=== PATIENT | male | born 1960 | race Caucasian/White ===

== ENCOUNTER 2020-02-06 09:49 | Emergency (ER) | payer OTHER, SELFPAY ==
--- NOTE | 2020-02-06 10:01 | ED.GENADULT ---
HPI - General Adult General Chief complaint: Extremity Injury, Lower Stated complaint: left knee pain Time Seen by Provider: 02/06/20 10:16 Source: patient Mode of arrival: ambulatory Limitations: no limitations History of Present Illness HPI narrative: 59-year-old male patient presents to the [facility] with complaints of left knee pain x3 weeks. Denies any specific injury to the knee that he is aware of. Patient states he does have history of arthritis. Patient states he has been taking some ibuprofen here and there but nothing consistent. Patient states he did take about 2 or 3 ibuprofen yesterday morning when the pain was really bad in which he states that it did help because the pain is about a 4 out of 10 when he woke up this morning and now rating it 2 out of 10. Patient denies taking anything for the pain this morning. Patient states the pain is worse when bending and extending the left knee as well as walking on it. Related Data Home Medications Medication Instructions Recorded Confirmed atorvastatin 10 mg PO DAILY 02/06/20 02/06/20 diclofenac sodium 50 mg PO BID 02/06/20 02/06/20 metoprolol succinate 50 mg PO DAILY 02/06/20 02/06/20 Allergies Allergy/AdvReac Type Severity Reaction Status Date / Time No Known Allergies Allergy Unverified 02/06/20 10:13 Review of Systems Review of Systems: Narrative: CONSTITUTIONAL: Denies fever, chills, or sweats. EYES: Denies visual changes, redness, or discharge. ENT: Denies rhinorrhea, congestion, sore throat, or otalgia. CARDIOVASCULAR: Denies chest pain, palpitations, or edema. RESPIRATORY: Denies cough or dyspnea. GASTROINTESTINAL: Denies abdominal pain, nausea, vomiting, or diarrhea. GENITOURINARY: Denies dysuria or hematuria. SKIN: Denies rash or itching. MUSCULOSKELETAL: Denies back pain, joint pain, or myalgia. Positive left knee pain x3 weeks NEUROLOGIC: Denies headache, numbness, or weakness. PSYCHIATRIC: Denies anxiety or depression. [facility] Past Medical History Medical History (Updated 02/06/20 @ 10:29 by JAME Tavarez) Arthritis Fractures Left arm, nose, finger, right foot GERD (gastroesophageal reflux disease) Hypercholesteremia Hypertension Surgical History Surgical History (Updated 02/06/20 @ 10:18 by JAME Tavarez) History of orthopedic surgery Left arm and right foot Family History Family History Other Carcinoma of colon Cerebrovascular accident Family history of coronary artery disease Family history of dementia Hypertension Social History Social History Smoking status: Heavy tobacco smoker Second hand tobacco smoke exposure: No Alcohol intake: never Gender identity (if verbalized by the patient): Male Comments At the time of my signature I agree with nursing past medical history, surgical, social, and family history. There is no relevant family history pertinent to the presenting complaint. Exam Narrative: Exam Narrative: GENERAL: Well-appearing, well-nourished, and in no acute distress. HEAD: Normocephalic, atraumatic. EYES: PERRLA and EOMI. ENT: Nares clear, no rhinorrhea or epistaxis. Mucous membranes moist. NECK: Supple. No lymphadenopathy CHEST: Clear to auscultation. No respiratory distress. HEART: Regular rate and rhythm. No murmur heard. Normal peripheral pulses. ABDOMEN: Soft, nontender, nondistended, normal active bowel sounds. EXTREMITIES: Patient is able to bear weight and ambulate but complains of increased pain to left knee. No surface trauma, STS, or obvious effusion. No overlying erythema or warmth. The L knee is without obvious asymmetry or deformity when compared to the R knee. Patient is able to do deep knee bend with symmetry, fully extend knee, internal and external rotation. No tendernss to palpation of the patella, very slight effusion noted, no ballottement. No tenderness
[2020-02-06 10:08] VITALS: BP 153/95; PULSE 71; RESP 16; TEMP 36.6; O2SAT 98
== END 2020-02-06 10:37 | disposition home or self-care (01) ==
PROVIDERS: Emergency Provider Nurse Practitioner Family; PCP Family Medicine
DX: M17.12 Unilateral primary osteoarthritis, left knee (principal); F17.200 Nicotine dependence, unspecified, uncomplicated; K21.9 Gastro-esophageal reflux disease without esophagitis; E78.00 Pure hypercholesterolemia, unspecified; I10 Essential (primary) hypertension
CPT/HCPCS: 99213; G0463

== ENCOUNTER 2020-02-14 11:21 | Outpatient (CLI) | payer OTHER, SELFPAY ==
--- NOTE | ~2020-02-14 | XR_ITS ---
XR knee LT 3V 02/14/2020 12:04 INDICATION: Left knee pain PROCEDURE: 3 views left knee COMPARISON: No prior studies for comparison. FINDINGS: Fracture, dislocation or subluxation is not identified. Mild patellofemoral compartment ost eoarthritis. The soft tissues appear within normal limits. No foreign bodies are identified. IMPRESSION: 1: NO ACUTE BONE OR JOINT ABNORMALITY IDENTIFIED. Reviewed, dictated and finalized at location A.
== END 2020-02-14 11:22 ==
PROVIDERS: PCP Family Medicine; Visit Provider Physician Assistant
DX: M25.569 Pain in unspecified knee (principal)
CPT/HCPCS: 73562

== ENCOUNTER 2020-12-20 16:17 | Emergency (ER) | payer OTHER, SELFPAY ==
--- NOTE | ~2020-12-20 | XR_ITS ---
EXAMINATION: XR chest 2V EXAM DATE: 12/20/2020 16:51 INDICATION: Fatigue, weakness, left shoulder pain 4 days. Hypertension. TECHNIQUE: Frontal and lateral projections of the chest obtained and reviewed. Comparison is made to prior examination from portable x-ray 2006. FINDINGS: There is approximately 4 x 8 mm left upper lung zone opacity, could be granuloma but consid er follow-up nonemergent chest CT without contrast. The lungs are otherwise clear. There are no pleu ral effusions. The cardiomediastinal silhouette is within normal limits. There is no pneumothorax s uspected. The bones and soft tissues are unremarkable. IMPRESSION: Small indeterminate left upper lung zone nodular density; consider follow-up nonemergent chest CT without contrast. No acute findings. Reviewed, dictated and finalized at location B.
--- NOTE | 2020-12-20 16:29 | ECG_ITS ---
Measurements Intervals [place] Rate: 83 P: 21 [place]: 122 QRS: 40 QRSD: 93 T: 52 QT: 367 QTc: 433 Interpretive Statements SINUS RHYTHM DELAYED PRECORDIAL R/S TRANSITION BORDERLINE ECG Electronically Signed On 12-20-2020 17:03:43 CDT by Guero Whitlock D.O.
[2020-12-20 16:30] VITALS: BP 167/91; PULSE 95; RESP 18; TEMP 37.1; O2SAT 99
[2020-12-20 16:46] LABS: Basophils Absolute Auto 0.1 K/mm3 (0.0-0.1); Basophils Percent Auto 0.5 % (0.2-1.2); Eosinophils Absolute Auto 0.3 K/mm3 (0-0.3); Eosinophils Percent Auto 2.7 % (0-4.4); Hematocrit 50.5 % (42.0-52.0); Hemoglobin 16.6 g/dL (14.0-18.0); Immature Granulocyte Absolute 0.02 K/mm3 (0.00-0.031); Immature Granulocyte Percent A 0.2 % (0-0.5); Lymphocytes Absolute Auto 3.03 K/mm3 (0.9-3.2); Lymphocytes Percent Auto 33.2 % (18.3-44.2); Mean Corpuscular HGB Conc 32.9 g/dl (32-36); Mean Corpuscular Hemoglobin 28.6 pg (26-34); Mean Corpuscular Volume 87.1 fl (80-100); Mean Platelet Volume 9.6 fl (7.4-10.4); Monocytes Absolute Auto 0.7 K/mm3 (0.1-0.6); Monocytes Percent Auto 7.3 % (2.6-8.5); Neutrophils Absolute Auto 5.1 K/mm3 (1.3-6.7); Neutrophils Percent Auto 56.1 % (45.5-73.1); Platelet Count Result 252 k/mm3 (150-375); Red Cell Distribution Width 13.5 % (11.5-14.5); White Blood Count 9.1 K/mm3 (4.5-10.0)
[2020-12-20 16:55] LABS: Alanine Aminotransferase 30 U/L (4-50); Albumin Level 4.6 g/dL (3.5-5.1); Alkaline Phosphatase 96 U/L (38-126); Anion Gap 10 mmol/L (8-16); Aspartate Amino Transferase 33 U/L (17-59); Bilirubin,Total 0.5 mg/dL (0.2-1.3); Blood Urea Nitrogen 12 mg/dL (9-20); Calcium 9.9 mg/dL (8.4-10.2); Carbon Dioxide 21 mmol/L (22-30); Chloride 111 mmol/L (98-107); Estimated CRCL calculation 96 ml/min; Estimated Glomerular Filt Rate > 60; Glucose 95 mg/dL (65-110); Potassium 4.2 mmol/L (3.4-5.0); Sodium 142 mmol/L (137-145)
[2020-12-20 18:12] LABS: Add Urine Microscopic? NO; Appearance Urine Clear (Clear); Bilirubin Urine Negative (Negative); Blood Urine Negative (Negative); Color Urine Yellow (Yellow); Glucose Urine UA Negative (Negative); Ketones Urine Negative (Negative); Leukocyte Esterase Ur Negative LEU/UL (Negative); Nitrate Urine Negative (Negative); Protein Urine Negative (Negative); Specific Grav Ur 1.029 (1.001-1.035); Urobilinogen Urine Negative mg/dL (<2.0)
--- NOTE | 2020-12-20 21:39 | PC.NURSE ---
When vital signs were attempted to be collected the patient refused stating they can just give me my discharge papers since they don't know what's wrong with me
--- NOTE | 2020-12-20 21:46 | ED.WEAKNESS ---
HPI - Weakness General Chief complaint: Weakness Stated complaint: fatigue, seen at [facility] yesterday for c/o Time Seen by Provider: 12/20/20 21:02 History of Present Illness HPI Narrative: 60 yo male w/ h/o htn presents to the ED for fatigue. He reports that for the past 4 days he has been extremely tired. He can only tolerate brief activity before needing to rest. He denies feeling ill otherwise. No fever, chills, nausea, vomiting, CP, SOB. He was seen at urgent care yesterday and told to come to the ED then. He reports that the wait was too long then, so he came back today. He was again in the waiting room for a few hours and is no longer interested in any further evaluation. Related Data Allergies Allergy/AdvReac Type Severity Reaction Status Date / Time No Known Allergies Allergy Verified 02/14/20 10:43 Review of Systems Review of Systems: All systems reviewed & are unremarkable except as noted in HPI and below Constitutional: Constitutional: Denies chills, Reports fatigue and Denies fever(s) Eyes: Eyes: Reports no additional eye complaints ENT: Denies sore throat Cardiovascular: Cardiovascular: Denies chest pain Respiratory: Respiratory: Denies dyspnea Gastrointestinal: Gastrointestinal: Denies abdominal pain, Denies diarrhea, Denies nausea and Denies vomiting Genitourinary: Genitourinary: Reports no additional male genitourinary complaints Musculoskeletal: Musculoskeletal: Denies myalgias Neurologic: Denies confusion, Denies syncope, Denies headache(s) and Denies focal weakness Endocrine: Endocrine: Denies polydipsia PMFSH Past Medical History Medical History Arthritis Fractures Left arm, nose, finger, right foot GERD (gastroesophageal reflux disease) Hypercholesteremia Hypertension Surgical History Surgical History History of orthopedic surgery Left arm and right foot Family History Family History Other Carcinoma of colon Cerebrovascular accident Family history of coronary artery disease Family history of dementia Hypertension Social History Social History Smoking status: Heavy tobacco smoker Second hand tobacco smoke exposure: No Alcohol intake: never Gender identity (if verbalized by the patient): Male Exam Const: General: healthy appearing, no acute distress and alert Orientation/consciousness: patient oriented x3 HENMT: Head: normal to inspection Face and sinus: normal facial exam Eyes: Pupils: Equal, round and reactive pupils present Neck: Neck: normal visual inspection Resp: Effort & Inspection: normal respiratory effort Auscultation: clear to auscultation bilaterally, no rales, no rhonchi and no wheezes Cardio: Jugular venous distension: no JVD Rate: regular rate Rhythm: regular rhythm Heart sounds: no murmurs GI: Inspection: non-distended GI Palp: Yes Soft to palpation and No Tenderness to palpation present (GI) Skin: General skin exam: normal color Neuro: General: patient oriented x3, moves all extremities, no focal motor deficits and CN's II-XI intact bilaterally Speech: normal speech Gait exam (Neuro): Normal gait present Extrem: General: no edema Psych: Appearance: grossly normal and well kempt Mental Status: mental status grossly normal Affect: normal affect Course Vital Signs Vital signs: Vital Signs Temperature 37.1 C 12/20/20 16:30 Pulse Rate 95 12/20/20 16:30 Respiratory Rate 18 12/20/20 16:30 Blood Pressure 167/91 H 12/20/20 16:30 Pulse Oximetry 99 12/20/20 16:30 Temperature 37.1 C 12/20/20 16:30 Pulse Rate 83 12/20/20 22:31 Respiratory Rate 16 12/20/20 22:31 Blood Pressure 157/111 H 12/20/20 22:31 Pulse Oximetry 99 12/20/20 22:31 MDM - Weakness MDM Narrati
[2020-12-20 22:31] VITALS: BP 157/111; PULSE 83; RESP 16; O2SAT 99
== END 2020-12-20 22:31 | disposition home or self-care (01) ==
PROVIDERS: Emergency Medicine; Emergency Provider Emergency Medicine; PCP Family Medicine
DX: R53.83 Other fatigue (principal); R53.81 Other malaise; M19.90 Unspecified osteoarthritis, unspecified site; K21.9 Gastro-esophageal reflux disease without esophagitis; E78.00 Pure hypercholesterolemia, unspecified; I10 Essential (primary) hypertension; F17.200 Nicotine dependence, unspecified, uncomplicated; R91.8 Other nonspecific abnormal finding of lung field
CPT/HCPCS: 36415; 71046; 80053; 81003; 85025; 93005; 99283

== ENCOUNTER 2021-11-08 13:10 | Emergency (ER) | payer OTHER, SELFPAY ==
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
[2021-11-08 13:30] VITALS: BP 161/104; PULSE 75; RESP 16; TEMP 36.8; O2SAT 99
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
== END 2021-11-08 15:01 | disposition home or self-care (01) ==
PROVIDERS: Emergency Provider Emergency Medicine; PCP Family Medicine
DX: S29.9XXA Unspecified injury of thorax, initial encounter (principal); S16.1XXA Strain of muscle, fascia and tendon at neck level, initial encounter; E78.00 Pure hypercholesterolemia, unspecified; I10 Essential (primary) hypertension; K21.9 Gastro-esophageal reflux disease without esophagitis; M19.90 Unspecified osteoarthritis, unspecified site; F17.200 Nicotine dependence, unspecified, uncomplicated; V63.5XXA Driver of heavy transport vehicle injured in collision with car, pick-up truck or van in traffic accident, initial encounter
CPT/HCPCS: 70450; 71101; 72125; 99284

== ENCOUNTER 2021-11-18 08:01 | Outpatient (CLI) | payer OTHER, SELFPAY ==
--- NOTE | ~2021-11-18 | US_ITS ---
EXAMINATION: US carotid duplex BI DATE: 11/18/2021 08:45 INDICATION: Cerebral infarction. TECHNIQUE: Grayscale, color Doppler, and pulsed Doppler images of the cervical carotid arteries were obtained. The degree of vessel stenosis is placed in one of the following categories: normal, <50%, 5 0-69%, >=70% but less than near-occlusion, near-occlusion, or total occlusion. Note that percent sten osis relative to normal distal artery lumen diameter is indirectly measured from velocity measurement s as described by Harris, et al. Radiology 2003; 229:340-346. Notes: Normal: Peak systolic velocity <125 centimeters/sec and no plaque <50%. Peak systolic velocity <125 ( EDV <40; ICA/CCA PSV ratio <2.0; used these factors only a tandem lesions or low cardiac output or co ntralateral disease) 50-69 %: PSV 125-230 (EDV 40-100; ratio 2-4) >= 70% but less than near occlusion: PSV greater than 230 (EDV > 100; ratio> 4.0) Near Occlusion: PSV that is variable; markedly narrowed lumen Occlusion: Absent flow on color/spectral Doppler and no lumen on colin scale. COMPARISON: None. FINDINGS: RIGHT: The right common carotid artery (CCA) peak systolic velocity (PSV) is 78 cm/s. The right internal car otid artery (ICA) PSV is 52 cm/s. The right ICA end-diastolic velocity (EDV) is 16 cm/s. The right IC A/CCA PSV ratio is 0.7. The external carotid artery (ECA) PSV is 113 cm/s. There is antegrade flow in the right vertebral artery. LEFT: The left CCA PSV is 108 cm/s. The left ICA PSV is 83 cm/s. The left ICA EDV is 31 cm/s. The left ICA/ CCA PSV ratio is 0.8. The ECA PSV is 138 cm/s. There is antegrade flow in the left vertebral artery. IMPRESSION: 1. Less than 50% stenosis in the right internal carotid artery by sonographic criteria. 2. Less than 50% stenosis in the left internal carotid artery by sonographic criteria. Reviewed, dictated and finalized at location A. IMPRESSION: 1. Less than 50% stenosis in the right internal carotid artery by sonographic macrina jarquin. 2. Less than 50% stenosis in the left internal carotid artery by sonographic fabiana thibodeaux.
== END 2021-11-18 08:02 | disposition home or self-care (01) ==
PROVIDERS: PCP Family Medicine; Visit Provider Family Medicine
DX: I63.9 Cerebral infarction, unspecified (principal); I65.23 Occlusion and stenosis of bilateral carotid arteries
CPT/HCPCS: 93880

== ENCOUNTER 2023-04-30 10:17 | Emergency (ER) | payer BC, SELFPAY ==
[2023-04-30 10:30] VITALS: BP 177/104; PULSE 98; RESP 22; TEMP 36.7; O2SAT 99
[2023-04-30] MEDS: ASPIRIN 81 MG CHEWABLE TABLET 324 MG PO (10:39)
--- NOTE | 2023-04-30 10:40 | ECG_ITS ---
Measurements Intervals [place] Rate: 85 P: 10 [place]: 133 QRS: 9 QRSD: 93 T: 24 QT: 324 QTc: 385 Interpretive Statements SINUS RHYTHM ANTEROLATERAL mYOCARDIAL INFARCTION [40+ ms Q WAVE IN V1/V2], PROBABLY RECENT OR ACUTE COMPARED TO ECG 12/20/2020 16:36:45 MYOCARDIAL INFARCT FINDING NOW PRESENT Electronically Signed On 04-30-2023 19:09:47 DIRECTOR OF CASINO by Merari Solano M.D.
[2023-04-30 10:42] VITALS: BP 173/117; PULSE 86; RESP 20; O2SAT 96
--- NOTE | 2023-04-30 10:49 | ED.CHESTPAIN ---
HPI - Chest Pain General Chief Complaint: Chest Pain Stated Complaint: chest pain,feeling weak,sluggish Time Seen by Provider: 04/30/23 10:30 Source: patient, RN notes reviewed and old records reviewed Mode of arrival: ambulatory Limitations: no limitations History of Present Illness HPI narrative: Year old male with a history of high cholesterol hypertension presents to the [facility] with 2 days of left-sided chest pain radiating to his left shoulder. States that he was In pain and extremely weak he could not get out bed. reports that his blood pressure medications last night, blood pressure is elevated in clinic MD complaint: chest pain and chest discomfort Onset (ago): day(s) (2) Treatment prior to arrival: none Risk Factors Coronary artery disease risk factors: hyperlipidemia and hypertension Related Data Allergies Allergy/AdvReac Type Severity Reaction Status Date / Time No Known Allergies Allergy Verified 04/30/23 10:34 Review of Systems Review of Systems: All systems reviewed & are unremarkable except as noted in HPI and below Constitutional: Constitutional: Reports no additional constitutional complaints Eyes: Eyes: Reports no additional eye complaints ENT: Reports system reviewed and no additional complaints, except as documented Cardiovascular: Cardiovascular: Reports as per HPI, Reports chest pain, Reports chest pain at rest, Reports chest pain with activity, Denies diaphoresis, Denies edema and Reports dyspnea Respiratory: Respiratory: Reports no additional respiratory complaints, Denies chest congestion, Denies cough and Denies dyspnea Gastrointestinal: Gastrointestinal: Reports no additional gastrointestinal complaints, Denies abdominal pain, Denies nausea and Denies vomiting Musculoskeletal: Musculoskeletal: Reports no additional musculoskeletal complaints Integumentary/Breasts: Skin/Breast: Reports system reviewed and no additional complaints, except as docu Neurologic: Reports system reviewed and no additional complaints, except as documented Psychiatric: Psychiatric: Reports no additional psychiatric complaints Allergic/Immunologic: Allergic/Immunologic: Reports no additional allergic/immunologic complaints PMFSH Past Medical History Medical History Arthritis Fractures Left arm, nose, finger, right foot GERD (gastroesophageal reflux disease) Hypercholesteremia Hypertension Surgical History Surgical History History of orthopedic surgery Left arm and right foot Family History Family History Other Carcinoma of colon Cerebrovascular accident Family history of coronary artery disease Family history of dementia Hypertension Social History Social History Smoking packs per day: 1 Smoking cigarettes per day: 20.0 Years smoked: 46 Smoking pack-years: 46.00 Smoking status: Heavy tobacco smoker Second hand tobacco smoke exposure: No Alcohol intake: never Substance use: never Substance use type: does not use Gender identity (if verbalized by the patient): Male Comments At the time of my signature, I reviewed and agree with the nursing past medical, surgical, social, and family history. There is no relevant family history pertinent to the patient complaint. Exam Const: General: cooperative, healthy appearing, comfortable, no acute distress, well developed, alert and well nourished Nutritional Appearance: well nourished Orientation/consciousness: patient oriented x3 Limitations: no limitations HENMT: Head: normal to inspection Ears: hearing grossly normal bilaterally and external ears normal Face/Nose/Sinus: Normal external nose present, Normal nares present, Normal nasal mucous membranes and turbinates present, normal facial exam and face symme
== END 2023-04-30 10:49 | disposition short-term general hospital (02) ==
PROVIDERS: Emergency Provider Nurse Practitioner; PCP Family Medicine
DX: I10 Essential (primary) hypertension (principal); R07.9 Chest pain, unspecified; R94.31 Abnormal electrocardiogram [ECG] [EKG]; F17.210 Nicotine dependence, cigarettes, uncomplicated; M19.90 Unspecified osteoarthritis, unspecified site; E78.00 Pure hypercholesterolemia, unspecified; K21.9 Gastro-esophageal reflux disease without esophagitis
CPT/HCPCS: 93005; 99215; A9270; G0463

== ENCOUNTER 2023-04-30 11:15 | Inpatient (IN) | payer BC, SELFPAY ==
[2023-04-30] VITALS (14 sets, daily range): BP systolic 136–165; BP diastolic 77–102; PULSE 73–82; RESP 12–22; TEMP 36.7–36.8; O2SAT 95–100
--- NOTE | ~2023-04-30 | XR_ITS ---
XR chest 1V portable 04/30/2023 11:44 Indication: Chest pain Procedure: AP portable chest Comparison: 12/20/2020 Findings: Heart size normal. No focal air space disease, pulmonary edema, pleural effusion or suspect ed pneumothorax. Impression: 1: No acute cardiopulmonary disease. Reviewed, dictated and finalized at [facility] L. [employer] SUPERVISOR Impression: 1: No acute cardiopulmonary disease.
--- NOTE | 2023-04-30 11:23 | ECG_ITS ---
Measurements Intervals [place] Rate: 81 P: 10 NE: 138 QRS: 17 QRSD: 93 T: 26 QT: 395 QTc: 461 Interpretive Statements SINUS RHYTHM ANTEROLATERAL ST T-WAVE CHANGES CONSISTENT WITH A RECENT OR ACUTE MYOCARDIAL INFARCTION COMPARED TO ECG 04/30/2023 10:34:38 NO SIGNIFICANT CHANGES Electronically Signed On 04-30-2023 19:14:09 [employer]A DEVELOPMENT CONSULTANT by Merari Solano M.D.
--- NOTE | 2023-04-30 11:29 | ED.CHESTPAIN ---
HPI - Chest Pain General Chief Complaint: Chest Pain <Katya Posada APRN - Last Filed: 04/30/23 14:21> Stated Complaint: HTN, CP <Katya Posada APRN - Last Filed: 04/30/23 14:21> Time Seen by Provider: 04/30/23 11:28 <Katya Posada APRN - Last Filed: 04/30/23 14:21> Source: patient, EMS and other (staff at the urgent care in [place]) <Katya Posada APRN - Last Filed: 04/30/23 14:21> Mode of arrival: EMS <Katya Posada APRN - Last Filed: 04/30/23 14:21> Limitations: no limitations <Katya Posada APRN - Last Filed: 04/30/23 14:21> History of Present Illness HPI narrative: patient is a pleasant 62-year-old male past medical history is noted below presents emergency department today via EMS for evaluation of chest pain and abnormal EKG findings. The patient states that Thursday he started having majano to the midsternal aspect of his chest described as a sharp pain/pressure. He states that it had came and went. He states the pain did not radiate to the arm/back/jaw/shoulder/neck. he denies any associated nausea/diaphoresis. 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 he states yesterday the pain came again and he just felt foggy . He states that he wanted to come here but didn't want to drive himself. last night he had an intense epsiode of gas pain for about an hour he states, then the pain to the midsternal chest went away. HE denies having diarrhea/vomiting/constipation. He states that today he went to the urgent care for his symptoms. he states he currently has no pain. denies any sob/dizziness/headache/nausea/vomiting/chills/sweats/fever/recent uri/known sick exposures. Smokes 1 PPD for many years of cigarettes. HX of HTN, HLD. Denies hx of PE or DVT. Denies lower leg edema. <Katya Posada APRN - Last Filed: 04/30/23 14:21> Related Data Allergies/Adverse Reactions: Allergies Allergy/AdvReac Type Severity Reaction Status Date / Time No Known Allergies Allergy Verified 04/30/23 10:34 <Katya Posada APRN - Last Filed: 04/30/23 14:21> Review of Systems Review of Systems: CONSTITUTIONAL: Denies fever, chills, or sweats. EYES: Denies visual changes, redness, or discharge. ENT: Denies rhinorrhea, congestion, sore throat, or otalgia. CARDIOVASCULAR: Denies current chest pain, palpitations, or edema. RESPIRATORY: Denies cough or dyspnea. GASTROINTESTINAL: Denies abdominal pain, nausea, vomiting, or diarrhea. GENITOURINARY: Denies dysuria or hematuria. SKIN: Denies rash or itching. MUSCULOSKELETAL: Denies back pain, joint pain, or myalgia. NEUROLOGIC: Denies headache, numbness, or weakness. PSYCHIATRIC: Denies anxiety or depression. <Katya Posada APRN - Last Filed: 04/30/23 14:21> All systems reviewed & are unremarkable except as noted in HPI and below <Katya Posada APRN - Last Filed: 04/30/23 14:21> [facility] Past Medical History Medical History: Medical History Arthritis Fractures Left arm, nose, finger, right foot GERD (gastroesophageal reflux disease) History of CVA (cerebrovascular accident) Hypercholesteremia Hypertension <Katya Posada APRN - Last Filed: 04/30/23 14:21> Surgical History Surgical History: Surgical History History of orthopedic surgery Left arm and right foot <Katya Posada APRN - Last Filed: 04/30/23 14:21> Family History Family History: Family History Other Carcinoma of colon Cerebrovascular accident Family history of coronary artery disease Family history of dementia Hypertension <Katya Posada APRN - Last Filed: 04/30/23 14:21> Social History Social History: Social History Smoking packs per day: 1 Smoking cigarettes per day: 20.0 Years smoked: 4
[2023-04-30 12:13] LABS: Basophils Absolute Auto 0.1 K/mm3 (0.0-0.1); Basophils Percent Auto 0.5 % (0.2-1.2); Eosinophils Absolute Auto 0.3 K/mm3 (0-0.3); Eosinophils Percent Auto 2.7 % (0-4.4); Hematocrit 48.3 % (42.0-52.0); Hemoglobin 16.2 g/dL (14.0-18.0); Immature Granulocyte Absolute 0.03 K/mm3 (0.00-0.031); Immature Granulocyte Percent A 0.3 % (0-0.5); Lymphocytes Absolute Auto 3.04 K/mm3 (0.9-3.2); Mean Corpuscular HGB Conc 33.5 g/dl (32-36); Mean Corpuscular Hemoglobin 29.2 pg (26-34); Mean Platelet Volume 9.2 fl (7.4-10.4); Monocytes Absolute Auto 0.9 K/mm3 (0.1-0.6); Monocytes Percent Auto 9.2 % (2.6-8.5); Neutrophils Absolute Auto 5.5 K/mm3 (1.3-6.7); Neutrophils Percent Auto 56.3 % (45.5-73.1); Platelet Count Result 267 k/mm3 (150-375); Red Blood Count 5.55 M/mm3 (4.6-6.20); Red Cell Distribution Width 12.9 % (11.5-14.5); White Blood Count 9.8 K/mm3 (4.5-10.0)
[2023-04-30 12:25] LABS: INR 0.9; Prothrombin Time 12.8 Seconds (11.1-14.7)
[2023-04-30 12:26] LABS: Alanine Aminotransferase 30 U/L (6-50); Albumin Level 4.2 g/dL (3.5-5.1); Alkaline Phosphatase 89 U/L (38-126); Anion Gap 6 mmol/L (8-16); Aspartate Amino Transferase 70 U/L (17-59); Bilirubin,Total 0.5 mg/dL (0.2-1.3); Blood Urea Nitrogen 15 mg/dL (9-20); Calcium 9.2 mg/dL (8.4-10.2); Carbon Dioxide 22 mmol/L (22-30); Chloride 111 mmol/L (98-107); Estimated CRCL calculation 109 ml/min; Estimated Glomerular Filt Rate > 60; Glucose 96 mg/dL (65-110); Lipase 42 U/L (23-300); Partial Thromboplastin Time 27.9 SECONDS (22.3-36.8); Potassium 4.1 mmol/L (3.4-5.0); Sodium 139 mmol/L (137-145)
--- NOTE | 2023-04-30 14:02 | PM.IMHP ---
H&P: HPI History of Present Illness Date/Time: 04/30/23 14:02 Chief Complaint: Chest pain for 2 days with fatigue and weakness, abnormal EKG, elevated troponin Narrative: This is a 62-year-old male patient who was being admitted to the hospital for elevated troponin abnormal EKG suggestive of PR. Patient had chest pain starting 2 days ago that persisted until last night greater than 36 hours that was substernal constant pressure without radiation. Patient states that he felt like he needed to belch but was really unable to. Since the onset chest pressure patient has felt very weak and fatigued stated that he felt too weak to get up out of bed yesterday to drive himself to get checked out. Patient does have a history of smoking 1 pack per day for multiple years, hyperlipidemia, hypertension and obesity. Patient reports that he was pain free today but he went to urgent care at the insistence of his daughter and at urgent care he had an EKG that appeared to be a STEMI. EMS was called and brought patient to the emergency department. Interventional Cardiology Dr. Woodall reviewed EKG and noted some elevations without reciprocal changes and patient was pain free so he did not go directly to the [facility] labor. Troponin was found to be elevated over 6. Patient will be started on heparin drip and admitted to IMU. Currently he is ordered in the emergency department as there are no available IMU beds. We will repeat troponin and EKG at 3 and 6 hours. Patient denies any ongoing symptoms except feeling weak at this time. Review of Systems Review of Systems: All systems reviewed & are unremarkable except as noted in HPI and below PMFSH Past Medical History Medical History Arthritis Fractures Left arm, nose, finger, right foot GERD (gastroesophageal reflux disease) History of CVA (cerebrovascular accident) Hypercholesteremia Hypertension Surgical History Surgical History History of orthopedic surgery Left arm and right foot Family History Family History Other Carcinoma of colon Cerebrovascular accident Family history of coronary artery disease Family history of dementia Hypertension Social History Social History Smoking packs per day: 1 Smoking cigarettes per day: 20.0 Years smoked: 46 Smoking pack-years: 46.00 Smoking status: Heavy tobacco smoker Second hand tobacco smoke exposure: No Alcohol intake: never Substance use: never Substance use type: does not use Gender identity (if verbalized by the patient): Male Meds Home Medications and Allergies Home Medications Medication Instructions Recorded Confirmed Type atorvastatin 10 mg tablet 10 mg PO DAILY #90 tabs 04/08/23 04/30/23 Rx losartan 50 mg tablet 50 mg PO DAILY #90 tabs 04/08/23 04/30/23 Rx Allergies Allergy/AdvReac Type Severity Reaction Status Date / Time No Known Allergies Allergy Verified 04/30/23 10:34 Vital Signs Vital Signs - 24 hr 04/30/23 11:17 Temperature 36.7 C Pulse Rate 80 Respiratory Rate 20 Blood Pressure 165/98 H Pulse Oximetry 97 Oxygen Delivery Room Air Exam Narrative: GENERAL: Well-appearing, overweight, well-nourished, and in no acute distress. HEAD: Normocephalic, atraumatic. EYES: PERRLA and EOMI. ENT: Nares clear, no rhinorrhea or epistaxis. Mucous membranes moist. NECK: Supple. No JVD. No carotid bruit CHEST: Clear to auscultation. No respiratory distress. HEART: Regular rate and rhythm. No murmur heard. Normal peripheral pulses. ABDOMEN: Soft, nontender, nondistended, normal active bowel sounds. EXTREMITIES: Normal range of motion. No edema. SKIN: Warm, dry, no rash. NEURO: No focal deficits. Alert and oriented x3. CN II-XII grossly intact PSYCH: Normal moo
[2023-04-30] MEDS: HEPARIN SOD/D5W 100 UNITS/ML 25,000 UNITS/250 ML BAG 10 UNITS IV CONT (14:24)
[2023-04-30] MEDS: HEPARIN SODIUM 5,000 UNITS/ML VIAL 4000 UNITS IV PUSH ×2 (14:25→22:16)
--- NOTE | 2023-04-30 15:18 | PM.CNCAR ---
Assessment and Plan Assessment and plan (1) Non-ST elevation (NSTEMI) myocardial infarction: Code(s): I21.4 - Non-ST elevation (NSTEMI) myocardial infarction Status: Acute Assessment and Plan: Clinical presentation consistent with a myocardial infarction. Given that the patient is now chest pain free, and has remained chest pain free since evening of 04/29, it appears that he has completed the myocardial infarction. Discussed diagnosis of MD with the patient, and recommended cardiac catheterization. Discussed indications for the procedure, procedure details, risks vs benefits, alternative options. Patient is agreeable to cath. Will plan for cardiac catheterization 05/01. Patient to be NPO at midnight. Heparin drip started, continue. Loaded with ASA 324mg. Will start ASA 81mg once daily. Will start high-intensity statin. Will start beta mimi. Transthoracic echocardiogram ordered. (2) Hypertension: Code(s): I10 - Essential (primary) hypertension Status: Acute Assessment and Plan: Resume home Losartan. Will start beta mimi. (3) Hypercholesteremia: Code(s): E78.00 - Pure hypercholesterolemia, unspecified Status: Acute Assessment and Plan: On low dose Atorvastatin at home, will increase to high-intensity dose. History of Present Illness History of Present Illness Consult date/time: 04/30/23 15:18 Requesting physician: Rashawn Moseley APRN Consult reason: Other (NSTEMI) Reason For Visit: HTN, CP Narrative: We are consulted for NSTEMI. This is a 62 year old male with hypertension, hyperlipidemia, tobacco dependence, obesity who presented for chest pain evaluation. Patient states he began having substernal chest pain on Thursday and lasted all the way until Thursday evening. It resolved on Thursday evening and has not recurred since then. No known prior cardiac history. He does smoke 1PPD, has been smoking since age of 15. Takes medications for hypertension and hyperlipidemia for which he reports full compliance with. EKGs show sinus rhythm, septal infarction, T-wave inversions in V3-V6, likely old inferior infarct as well. No evidence of STEMI on EKGs. Repeat second EKG shows stable EKG without any dynamic changes. Patient is comfortable at the time of my exam without any complaints. Initial troponin is 6.420. Review of Systems Review of Systems: All systems reviewed & are unremarkable except as noted in HPI and below (HPI) PMFSH Past Medical History Medical History Arthritis Fractures Left arm, nose, finger, right foot GERD (gastroesophageal reflux disease) History of CVA (cerebrovascular accident) Hypercholesteremia Hypertension Surgical History Surgical History History of orthopedic surgery Left arm and right foot Family History Family History Other Carcinoma of colon Cerebrovascular accident Family history of coronary artery disease Family history of dementia Hypertension Social History Social History Smoking packs per day: 1 Smoking cigarettes per day: 20.0 Years smoked: 46 Smoking pack-years: 46.00 Smoking status: Heavy tobacco smoker Second hand tobacco smoke exposure: No Alcohol intake: never Substance use: never Substance use type: does not use Gender identity (if verbalized by the patient): Male Meds Home Medications and Allergies Home Medications Medication Instructions Recorded Confirmed Type atorvastatin 10 mg tablet 10 mg PO DAILY #90 tabs 04/08/23 04/30/23 Rx losartan 50 mg tablet 50 mg PO DAILY #90 tabs 04/08/23 04/30/23 Rx Allergies Allergy/AdvReac Type Severity Reaction Status Date / Time No Known Allergies Allergy Verified 04/30/23 10:34 Vital Signs Vital Signs - 24 hr 04/30/23
--- NOTE | 2023-04-30 15:22 | ECG_ITS ---
Measurements Intervals [place] Rate: 78 P: 10 FL: 145 QRS: 13 QRSD: 86 T: 33 QT: 395 QTc: 453 Interpretive Statements SINUS RHYTHM ANTEROLATERAL ST T-WAVE CHANGES CONSISTENT WITH AN ACUTE OR RECENT MYOCARDIAL INFARCTION COMPARED TO ECG 04/30/2023 11:21:26 NO SIGNIFICANT CHANGES Electronically Signed On 04-30-2023 19:15:39 PERSONAL INJURY [place] by Merari Solano M.D.
--- NOTE | 2023-04-30 15:22 | ECG_ITS ---
Measurements Intervals [place] Rate: 80 P: 8 MD: 128 QRS: 7 QRSD: 96 T: -7 QT: 407 QTc: 472 Interpretive Statements SINUS RHYTHM ST T-WAVE CHANGES ANTEROLATERALLY SUGGESTIVE OF RECENT OR ACUTE MYOCARDIAL INFARCTION COMPARED TO ECG 04/30/2023 11:54:44 NO SIGNIFICANT CHANGES Electronically Signed On 04-30-2023 19:19:00 EMERGENCY MEDICAL SERVICE COORDINATOR by Merari Solano M.D.
[2023-04-30 15:45] LABS: Cholesterol 217 mg/dL (0-200); HDL Direct 44 mg/dL; Triglycerides 151 mg/dL (<150)
[2023-04-30 15:56] LABS: LDL Cholesterol Direct 128 mg/dL
[2023-04-30 16:10] LABS: Influenza A QL RT-PCR Negative (Negative); Influenza B QL RT-PCR Negative (Negative); RSV RNA, RT-PCR Negative (Negative); SARS-CoV-2 RNA PCR Negative (Negative)
--- NOTE | 2023-04-30 16:24 | PC.NURSE ---
move to monitored room, room 19
[2023-04-30 16:26] LABS: Hemoglobin A1C 5.5 % (<5.7)
[2023-04-30] MEDS: METOPROLOL SUCCINATE EXT REL 25 MG TABCR PO (16:37)
[2023-04-30] MEDS: PANTOPRAZOLE 40 MG TABLET PO (16:37)
--- NOTE | 2023-04-30 19:08 | PC.NURSE ---
Assumed care of pt from TIERRA Neil at this time.
--- NOTE | 2023-04-30 20:50 | ADMGEN ---
This patient, Mirza Chun, was admitted to IMU Room 206-02 on 04/30/2023 at 2040. Patient/family oriented to hospital policies and general routines including ID bracelet, bed and alarms, visiting hours, pain management, procedures, bathroom and other care routines, personal items, smoking policy, room service/diet, and visiting hours. Information on how to activate the Rapid Response Team has been discussed. Patient/Family are encouraged to report perceived risks to care and to ask questions if they do not understand what they are told or what they should do.
[2023-04-30 21:24] LABS: Prothrombin Time 13.5 Seconds (11.1-14.7)
[2023-04-30 21:25] LABS: Partial Thromboplastin Time 39.5 SECONDS (22.3-36.8)
[2023-05-01] VITALS (37 sets, daily range): BP systolic 112–163; BP diastolic 68–97; PULSE 59–84; RESP 14–20; TEMP 36.2–37.2; O2SAT 93–99
--- NOTE | 2023-05-01 | ECHO_ITS ---
Patient Info Name: Mirza Chun Age: 62 years : 1960 Gender: Male Ht: 67 in Wt: 220 lbs BSA: 2.21 m2 HR: 86 bpm BP: 129 / 44 mmHg Heart Rhythm: Sinus Rhythm Technical Quality: Fair Exam Date: 05/01/2023 7:53 AM Exam Location: Echo Lab Patient Status: Inpatient Admit Date: 04/30/2023 Staff Ordering Physician: Hernandez Woodall MD (anshu/kat) Leather Belt Shaper: Yolanda Smith RDCS Attending Provider: Rajni Villarreal MD Referring Physician: Jose C WADE; Exam Type: CA echo dop color flow w con Study Info Indications - NSTEMI Complete two-dimensional, color flow and Doppler transthoracic echocardiogram is performed with contrast to opacify the left ventricle and to improve the deliniation of the left ventricle endocardial borders. Contrast/Agitated Saline Contrast/Ag. Saline: Definity Amount: 2.00 ml Administered By: Yolanda Smith RDCS Existing IV Access: Yes IV Access Condition: patent with no signs of infiltration Summary 1. Definity contrast used to improve visualization. 2. Left ventricular hypertrophy with normal size and overall good systolic function. 3. Very small area of apical akinesia. 4. Grade 1 diastolic noncompliance. 5. Mildly sclerotic aortic valve which is not stenotic. Left Ventricle Left ventricular chamber dimension is normal. Left ventricular systolic function is normal, estimated at 65-70%. There is moderate concentric increased left ventricular wall thickness. The left ventricular diastolic function is grade I diastolic dysfunction. Right Ventricle Right ventricular chamber dimension is normal. Left Atria Left atrial chamber dimension is normal. Right Atria Right atrial chamber dimension is normal. Aortic Valve The aortic valve is trileaflet. There is mild aortic valve sclerosis. Pulmonic Valve The pulmonic valve is not well visualized. Mitral Valve The mitral valve has normal leaflets. The mitral valve annulus is mildly calcified. Tricuspid Valve The tricuspid valve leaflets are normal. Pericardium/Pleural The pericardium appears normal. Aorta The aortic root size at the sinus of Valsalva is normal. Left Ventricular Outflow Tract Name Value Normal LVOT 2D LVOT Diameter 2.05 cm LVOT Doppler LVOT Peak Gradient 3 mmHg LVOT Mean Gradient 2 mmHg LVOT VTI 17.10 cm LVOT VTI/AV VTI Ratio 0.96 LVOT Stroke Volume 56.16 ml LVOT CO 4.03 l/min LVOT CI 1.82 L/min/m2 Pulmonic Valve Name Value Normal RVOT Doppler RVOT Peak Gradient 2 mmHg PV Doppler PV Peak Gradient 3 mmHg Mitral Valve
[2023-05-01 04:47] LABS: Basophils Percent Auto 0.3 % (0.2-1.2); Eosinophils Absolute Auto 0.3 K/mm3 (0-0.3); Hemoglobin 15.4 g/dL (14.0-18.0); Immature Granulocyte Absolute 0.04 K/mm3 (0.00-0.031); Immature Granulocyte Percent A 0.4 % (0-0.5); Lymphocytes Absolute Auto 3.58 K/mm3 (0.9-3.2); Lymphocytes Percent Auto 36.4 % (18.3-44.2); Mean Corpuscular HGB Conc 32.8 g/dl (32-36); Mean Corpuscular Hemoglobin 29.1 pg (26-34); Mean Corpuscular Volume 88.8 fl (80-100); Mean Platelet Volume 9.4 fl (7.4-10.4); Monocytes Percent Auto 9.7 % (2.6-8.5); Neutrophils Absolute Auto 4.9 K/mm3 (1.3-6.7); Neutrophils Percent Auto 50.2 % (45.5-73.1); Platelet Count Result 262 k/mm3 (150-375); Red Blood Count 5.29 M/mm3 (4.6-6.20); Red Cell Distribution Width 13.1 % (11.5-14.5); White Blood Count 9.8 K/mm3 (4.5-10.0)
[2023-05-01 05:06] LABS: Partial Thromboplastin Time 77.2 SECONDS (22.3-36.8)
[2023-05-01 05:10] LABS: Alanine Aminotransferase 26 U/L (6-50); Albumin Level 3.8 g/dL (3.5-5.1); Alkaline Phosphatase 96 U/L (38-126); Anion Gap 6 mmol/L (8-16); Aspartate Amino Transferase 52 U/L (17-59); Bilirubin,Total 0.6 mg/dL (0.2-1.3); Blood Urea Nitrogen 18 mg/dL (9-20); Calcium 9.3 mg/dL (8.4-10.2); Carbon Dioxide 25 mmol/L (22-30); Chloride 108 mmol/L (98-107); Estimated CRCL calculation 94 ml/min; Estimated Glomerular Filt Rate > 60; Glucose 98 mg/dL (65-110); Magnesium 2.2 mg/dL (1.6-2.3); Potassium 4.2 mmol/L (3.4-5.0); Sodium 139 mmol/L (137-145)
[2023-05-01] MEDS: PERFLUTREN LIPID MICROSPHERES 1.5 ML VIAL DILUTED TO 10 ML TOTAL VOLUME IV PUSH (08:20)
--- NOTE | 2023-05-01 08:52 | IVDEFINITY ---
Prior to administration of IV Definity the patient was educated on the risks and benefits of the imaging enhancing agent including potential adverse side effects. The patient verbalized understanding. Allergies were verified. No exclusion criteria were identified and at least one of the following inclusion criteria were met: 1) physician request, 2) patient technically difficult to image (per the [place] Society of Echocardiography guidelines of two or more segments not discernable within the apical view), or 3) questionable left ventricular function. ?
[2023-05-01] MEDS: METOPROLOL SUCCINATE EXT REL 25 MG TABCR PO (08:57)
[2023-05-01] MEDS: ATORVASTATIN 40 MG TABLET 80 MG PO (08:57)
[2023-05-01] MEDS: PANTOPRAZOLE 40 MG TABLET PO (08:58)
[2023-05-01] MEDS: ASPIRIN 81 MG ENTERIC TABLET PO (08:58)
--- NOTE | 2023-05-01 09:23 | PC.NURSE ---
To seed analysis laboratory assistant via bed, IV patent.
--- NOTE | 2023-05-01 09:35 | WPDMODSED ---
Moderate Sedation Note-Pt Data Patient Data Diagnosis: recent non ST elevation NE /late presentation tobacco abuse hypertension Present Complaint: no complaints this morning Procedure to be performed/Plan: left heart catheterization Allergies Allergy/AdvReac Type Severity Reaction Status Date / Time No Known Allergies Allergy Verified 04/30/23 10:34 Home Medications Medication Instructions Recorded Confirmed Type atorvastatin 10 mg tablet 10 mg PO QHS 04/30/23 04/30/23 History ibuprofen 800 mg tablet 800 mg PO Q6H PRN Arthritis 04/30/23 04/30/23 History losartan 50 mg tablet 50 mg PO HS 04/30/23 04/30/23 History Current Medications: Active Medications Acetaminophen (Acetaminophen 325 Mg Tablet) 650 mg PO Q4H PRN PRN Reason: Mild Pain (1-3) or Fever Aspirin (Aspirin 81 Mg Enteric Tablet) 81 mg PO [facility] Last Admin: 05/01/23 08:58 Dose: 81 mg Atorvastatin Calcium (Atorvastatin 40 Mg Tablet) 80 mg PO DAILY [facility] Last Admin: 05/01/23 08:57 Dose: 80 mg Heparin Sodium (Porcine) (Heparin Sodium 5,000 Units/Ml Vial) 4,000 units IV PUSH PRN PRN PRN Reason: aPTT less than 55 seconds Last Admin: 04/30/23 22:16 Dose: 4,000 units Heparin Sodium (Porcine) (Heparin Sodium 5,000 Units/Ml Vial) 3,000 units IV PUSH PRN PRN PRN Reason: aPTT 55 - 70 seconds Heparin Sodium/Dextrose (Heparin Sodium/D5w 100 Units/Ml) 25,000 units in 250 mls @ 13 mls/hr IV CONT .[id number] [facility]; Protocol Last Titration: 05/01/23 04:30 Dose: 1,300 units/hr, 13 mls/hr Metoprolol Succinate (Metoprolol Succinate Ext Rel 25 Mg Tabcr) 25 mg PO [facility] Last Admin: 05/01/23 08:57 Dose: 25 mg Morphine Sulfate (Morphine Sulfate (*Crx) 2 Mg/Ml Inj) 2 mg IV PUSH Q2H PRN PRN Reason: Pain Rated 7-10 Nitroglycerin (Nitroglycerin Sl 0.4 Mg Tablet) 0.4 mg SUBLINGUAL Q5MIN PRN PRN Reason: Chest Pain Ondansetron HCl (Ondansetron Inj 4 Mg/2 Ml Vial) 4 mg IV PUSH Q4H PRN PRN Reason: Nausea Pantoprazole Sodium (Pantoprazole 40 Mg Tablet) [facility] [place] Last Admin: 05/01/23 08:58 Dose: 40 mg Sedation/Anesthesia: No previous sedation/anesthesia problems (including family history). [facility] Past Medical History Medical History Arthritis Fractures Left arm, nose, finger, right foot GERD (gastroesophageal reflux disease) History of CVA (cerebrovascular accident) Hypercholesteremia Hypertension Surgical History Surgical History History of orthopedic surgery Left arm and right foot Family History Family History (Updated 04/30/23 @ 21:02 by Carrie Fang RN) Father Carcinoma of colon Other Cerebrovascular accident Family history of coronary artery disease Family history of dementia Hypertension Social History Social History Smoking packs per day: 0.5 Smoking cigarettes per day: 10.0 Years smoked: 45 Smoking pack-years: 22.50 Smoking status: Current every day smoker Tobacco type: cigarettes Second hand tobacco smoke exposure: No Alcohol intake: current Drinks per week: 1 Substance use: never Substance use type: does not use Lack of Transportation: No Lack of Food: Never True Current Housing: I Have Housing Concerned About Future Housing: No Difficulty Paying Gas/Electric Bills: No Difficulty Paying for Meds: No Currently Unemployed: No Education: High School Diploma/GED Difficulty w/ Childcare or Family Care: No Gender identity (if verbalized by the patient): Male Spiritual care concerns: No Mod Sed Physical Exam Physical Exam Pre Procedural Exam: Normal: Appearance, Nose, Neck, Throat, Airway, Lungs, Heart Size, Heart Rate, Heart Rhythm, Neuro Exam and Extremities Hours since solid foods: 12 Hours since liquid intake: 12 Mallampati Classification: class II Internal Medicine - PN: Obj Da Vital Si
--- NOTE | 2023-05-01 10:13 | WPDCARDPROC ---
Cardiac Cath Procedure Note Date of procedure:: 05/01/23 Performing physician:: Thomas Bradley MD Indication:: non ST-elevation [place] Brief clinical history:: this is a 62-year-old man with hypertension dyslipidemia and smoking who entered the hospital after experiencing ischemic chest pain about 48 hours prior to coming in. His troponin level was moderately elevated. ECG demonstrates evidence of anterior ischemia. Procedure Procedure performed:: Left ventriculogram coronary angiogram Sedation/Medication given:: fentanyl 50 mg Versed 2 mg case start time 9:41 a.m. case end time 10:05 a.m. sedation provided by Racheal Noonan RN, trained observer Access site:: right femoral artery Estimated blood loss:: 25 cc Procedure note:: patient brought to the cardiac catheterization lab in the postabsorptive state where the right femoral triangle was prepared and draped in the usual fashion. Anesthesia was provided with 1% lidocaine infiltrated locally. Using the modified Seldinger technique a 5 Argentine sheath was placed into the right femoral artery and after this left heart catheterization was carried out. A 5 Argentine angled pigtail catheter was used to measure left-sided hemodynamics and to inject LV g in the ER AO projection. Following this standard 5 [place] FL4 catheter was used to engage and inject the left coronary artery multiple projections. I then used a 5 Argentine JR4 catheter followed by a 5 Argentine WRP catheter to engage and inject the right coronary artery. After this the cineangiograms were reviewed and the case was terminated. Patient was taken the holding area for manual sheath removal. Procedure was well tolerated neuro uncomplicated in the was no evidence of groin hematoma upon him leaving the cardiac catheterization lab. Findings:: Hemodynamics: Central aortic pressure is 136 over 76 left ventricle 140/0 end-diastolic 12 there is no gradient on pullback across the aortic valve. Left ventricle: The LV is normal in size overall contractility is vigorous with an ejection fraction in the vicinity of 70%. There was a very small region of akinesis at the apex. The left main coronary artery is medium in caliber and patent the left anterior descending is a medium caliber artery extending down to around the apex. The ostium of the LAD has approximately 80% stenosis. Just distal to that in the vicinity of the origin of the major diagonal branch there is a tubular 90% stenosis in the LAD. There is MAX 3 flow in the vessel all the way down to the apex. The circumflex system is large in caliber and the visualized marginal branches. After the major marginal branch there is about 30% stenosis in the trunk of the circumflex there did not appear to be any significant lesions in this vessel the right coronary artery is medium in caliber dominant to the posterior circulation. There is about 60% ostial stenosis of the right coronary artery which was suspected as there was pressure damping when the vessel was engaged with a Elyssa catheter. With the WRP catheter there was less pressure damping in the vessel. The trunk of the right coronary artery after this has modest luminal irregularities. The RPDA has a discrete 90% stenosis in its midportion. There are diffuse plaques throughout the RPDA and RPL vessels. Conclusion:: 1. Right coronary dominant circulation with coronary artery disease primarily involving high-grade 80% ostial stenosis of the LAD followed by 90% tubular stenosis in this proximal segment of the artery in a sequential fashion. The distal LAD as well as the major diagonal branch are free of significant lesions. The proximal LAD disease appears to be the culprit for the presentation given the small area of apical akinesia as well as the electrocardiographic findings of anterior ischemia 2. high-grade stenosis of the RPDA in the midportion which is diffusely disease. There is moderate
--- NOTE | 2023-05-01 10:22 | PM.PNCARD ---
Progress Note: A&P Assessment and Plan (1) Non-ST elevation (NSTEMI) myocardial infarction: Code(s): I21.4 - Non-ST elevation (NSTEMI) myocardial infarction Status: Acute Plan 62-year-old man with hypertension dyslipidemia and cigarette smoking presenting with non ST elevation [place]. Angiographically the culprit appears to be the ostial/ proximal LAD. Told the patient at the time of angiography that I would recommend higher risk PCI for optimal treatment of this. Because of the ostial nature of his LAD disease it is suboptimal to proceed with this type of intervention at this hospital without surgical backup. The proximity to left main coronary artery makes this a high risk intervention. I will recommend continuing his aspirin and statin, add beta-mimi and clopidogrel this afternoon once his groin puncture site is hemostatic. I would anticipate him being able to be discharged and arrange for higher risk PCI elsewhere in the near future. Thomas Bradley MD [facility] Subjective Date/time seen: date of service:05/01/23 10:22 Interval history: Follow-up on this 62-year-old man with: Non ST-elevation [place] with ischemic chest pain on Thursday of this week. Patient presented several days after symptoms and had moderate troponin elevation and ECG evidence of anterior ischemia. Catheterization this morning demonstrates significant ostial stenosis of the LAD as well as high-grade stenosis in the proximal LAD in the vicinity of the major diagonal branch. There was modest mid circumflex stenosis and high discrete high-grade stenosis in the RPDA which is unrelated to the clinical presentation. Patient is asymptomatic today and offers no active / ongoing chest pain complaints Exam Const: General: comfortable HENMT: Mouth: Yes moist mucous membranes Eyes: Sclera: sclerae normal Neck: Neck: supple and no JVD Resp: Effort & Inspection: normal respiratory effort Auscultation: clear to auscultation bilaterally Cardio: Rate: regular rate Rhythm: regular rhythm GI: GI Palp: Yes Soft to palpation Auscultation: normal bowel sounds Skin: General skin exam: normal color Neuro: Other: alert and oriented x3 Extrem: Other: no edema, distal pulses are palpable but are diminished Objective Data Vital Signs Vital Signs: Vital Signs - 24 hr 04/30/23 14:06 04/30/23 11:17 04/30/23 11:30 Temperature 36.7 C Pulse Rate 80 79 Respiratory Rate 20 12 Blood Pressure 165/98 H 152/97 H Pulse Oximetry 97 96 Pulse Oximetry [Digit-Finger] 97 Oxygen Delivery Room Air 04/30/23 14:30 04/30/23 12:30 04/30/23 13:30 Temperature Pulse Rate 73 79 82 Respiratory Rate 22 H 18 20 Blood Pressure 147/87 H 150/93 H 136/97 H Pulse Oximetry 95 96 96 Pulse Oximetry [Digit-Finger] Oxygen Delivery 04/30/23 15:53 04/30/23 14:30 04/30/23 15:00 Temperature Pulse Rate 79 80 74 Respiratory Rate 15 13 21 H Blood Pressure 143/100 H 147/87 H 148/97 H Pulse Oximetry 99 100 96 Pulse Oximetry [Digit-Finger] Oxygen Delivery 04/30/23 15:30 04/30/23 16:30 04/30/23 16:37 Temperature Pulse Rate 79 75 79 Respiratory Rate 19 16 Blood Pressure 148/102 H 150/95 H Pulse Oximetry 96 95 Pulse Oximetry [Digit-Finger] Oxygen Delivery 04/30/23 20:42 04/30/23 22:19 04/30/23 22:00 Temperature 36.8 C Pulse Rate 79 82 Respiratory Rate 18 Blood Pressure 165/95 H 137/77 Pulse Oximetry 97 Pulse Oximetry [Digit-Finger] Oxygen Delivery 05/01/23 00:00 05/01/23 00:00 05/01/23 00:00 Temperature 36.8 C Pulse Rate 77 77 Respiratory Rate 16 Blood Pressure 134/69 Pulse Oximetry 97 97 Pulse Oximetry [Digit-Finger] Oxygen Delivery Room Air 05/01/23 02:00 05/01/23 04:00 05/01/23 04:00 Temperature 36.4 C Pulse Rate 69 84 Respiratory Rate 16 Blood Pressure 112/83 Pulse Oximetry 95 95 Pulse Oximetry [Digit-Finger] Oxygen Delivery Room
--- NOTE | 2023-05-01 12:21 | PC.NURSE ---
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 Groin site soft, with no hematoma. Denies CP.
[2023-05-01] MEDS: HYDROcodone/acetaminophen (*CRX) 7.5-325 MG TABLET 1 TAB PO (12:59)
[2023-05-01] MEDS: SODIUM CHLORIDE 0.9% IV 1,000 ML 125 ML IV CONT (13:00)
[2023-05-01] MEDS: METOPROLOL SUCCINATE EXT REL 50 MG TABCR PO (13:00)
--- NOTE | 2023-05-01 13:24 | PC.NURSE ---
Dr. Bradley adivsed to discontinue heparin gtt.
--- NOTE | 2023-05-01 16:27 | PM.IMPN ---
Progress Note: A&P Assessment and Plan (1) Non-ST elevation (NSTEMI) myocardial infarction: Code(s): I21.4 - Non-ST elevation (NSTEMI) myocardial infarction Status: Acute Assessment and Plan: underwent cardiac catheterization, small amount of apical akinesia. Refer to cardiology note for further. (2) Hypertension: Code(s): I10 - Essential (primary) hypertension Status: Acute Assessment and Plan: Blood pressures reviewed on 05/01, stable Plan Bed rest is done post cath procedure, no hematoma Diet: Heart Healthy VTE prophylaxis: asa/plavix GI prophylaxis: pantoprazole Code status: Full Code Disposition: likely discharge 05/02 for outpatient follow up for high risk PCI at another facility with Cardiac Surgery backup Time Spent With Patient Time with patient: 25 - 35 minutes Subjective Date/time seen: 05/01/23 16:27 Interval history: 04/30: This is a 62-year-old male patient who was being admitted to the hospital for elevated troponin abnormal EKG suggestive of [place]. Patient had chest pain starting 2 days ago that persisted until last night greater than 36 hours that was substernal constant pressure without radiation.? Patient states that he felt like he needed to belch but was really unable to.? Since the onset chest pressure patient has felt very weak and fatigued stated that he felt too weak to get up out of bed yesterday to drive himself to get checked out.? Patient does have a history of smoking 1 pack per day for multiple years, hyperlipidemia, hypertension and obesity.? Patient reports that he was pain free today but he went to urgent care at the insistence of his daughter and at urgent care he had an EKG that appeared to be a STEMI.? EMS was called and brought patient to the emergency department.? Interventional Cardiology Dr. 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 Troponin was found to be elevated over 6.? Patient will be started on heparin drip and admitted to IMU.? Currently he is ordered in the emergency department as there are no available IMU beds.? We will repeat troponin and EKG at 3 and 6 hours.? Patient denies any ongoing symptoms except feeling weak at this time. 05/01: Patient underwent cardiac cath with findings of ostial/proximal LAD stenosis requiring high risk PCI for optimal treatment. Cardiology will keep patient overnight and plan discharge tomorrow on aspirin and Plavix with follow up outpatient for PCI with intervention at a facility with Cardiac Surgery backup present. Patient complains of right knee pain in the joint, no swelling redness or palpable fluid in the joint space. Patient requesting dose of pain medication due to the knee being held straight for 4 hours Will give 1 time dose of IV morphine.. Review of Systems Review of Systems: All systems reviewed & are unremarkable except as noted in HPI and below Exam Narrative: GENERAL: Well-appearing, overweight, well-nourished, and in no acute distress. HEAD: Normocephalic, atraumatic. EYES: PERRLA and EOMI. ENT: Nares clear, no rhinorrhea or epistaxis. Mucous membranes moist. NECK: Supple. No JVD. No carotid bruit CHEST: Clear to auscultation. No respiratory distress. HEART: Regular rate and rhythm. No murmur heard. Normal peripheral pulses. ABDOMEN: Soft, nontender, nondistended, normal active bowel sounds. EXTREMITIES: Normal range of motion. No edema. SKIN: Warm, dry, no rash. NEURO: No focal deficits. Alert and oriented x3. CN II-XII grossly intact PSYCH: Normal mood and affect. Objective Data Vital Signs Vital Signs: Vital Signs - 24 hr 04/30/23 16:30 04/30/23 16:37 04/30/23 20:42 Temperature 36.8 C Pulse Rate 75 79 79 Respiratory Rate 16 18 Blood Pressure 150/95 H 165/95 H Pulse Oximetry 95 97 Oxygen Delivery 04/30/23 22:19 04/30/23 22:00 05/01/23 00:00 Temperature Pul
[2023-05-01] MEDS: CLOPIDOGREL BISULFATE 300 MG TABLET PO (17:15)
[2023-05-01] MEDS: MORPHINE SULFATE (*CRX) 4 MG/ML INJ IV PUSH (17:16)
[2023-05-02] VITALS (9 sets, daily range): BP systolic 112–134; BP diastolic 59–89; PULSE 51–73; RESP 14–16; TEMP 36.5–36.6; O2SAT 100
[2023-05-02] MEDS: KETOROLAC 30 MG/ML VIAL (*BKC) IV PUSH (00:48)
[2023-05-02 05:18] LABS: Basophils Percent Auto 0.4 % (0.2-1.2); Eosinophils Absolute Auto 0.2 K/mm3 (0-0.3); Eosinophils Percent Auto 2.5 % (0-4.4); Hematocrit 43.2 % (42.0-52.0); Hemoglobin 13.9 g/dL (14.0-18.0); Immature Granulocyte Absolute 0.03 K/mm3 (0.00-0.031); Immature Granulocyte Percent A 0.3 % (0-0.5); Lymphocytes Absolute Auto 3.16 K/mm3 (0.9-3.2); Mean Corpuscular HGB Conc 32.2 g/dl (32-36); Mean Corpuscular Volume 90.2 fl (80-100); Mean Platelet Volume 9.3 fl (7.4-10.4); Monocytes Absolute Auto 0.8 K/mm3 (0.1-0.6); Monocytes Percent Auto 8.8 % (2.6-8.5); Neutrophils Absolute Auto 5.3 K/mm3 (1.3-6.7); Platelet Count Result 220 k/mm3 (150-375); Red Blood Count 4.79 M/mm3 (4.6-6.20); Red Cell Distribution Width 12.9 % (11.5-14.5); White Blood Count 9.6 K/mm3 (4.5-10.0)
[2023-05-02 05:30] LABS: Alanine Aminotransferase 23 U/L (6-50); Albumin Level 3.5 g/dL (3.5-5.1); Alkaline Phosphatase 76 U/L (38-126); Anion Gap 4 mmol/L (8-16); Aspartate Amino Transferase 31 U/L (17-59); Bilirubin,Total 0.5 mg/dL (0.2-1.3); Blood Urea Nitrogen 18 mg/dL (9-20); Calcium 8.8 mg/dL (8.4-10.2); Carbon Dioxide 26 mmol/L (22-30); Chloride 108 mmol/L (98-107); Estimated CRCL calculation 84 ml/min; Estimated Glomerular Filt Rate > 60; Glucose 107 mg/dL (65-110); Magnesium 2.3 mg/dL (1.6-2.3); Potassium 4.3 mmol/L (3.4-5.0); Sodium 138 mmol/L (137-145)
[2023-05-02] MEDS: ASPIRIN 81 MG ENTERIC TABLET PO (09:49)
[2023-05-02] MEDS: ATORVASTATIN 40 MG TABLET 80 MG PO (09:49)
[2023-05-02] MEDS: METOPROLOL SUCCINATE EXT REL 25 MG TABCR PO (09:50)
[2023-05-02] MEDS: METOPROLOL SUCCINATE EXT REL 50 MG TABCR PO (09:50)
[2023-05-02] MEDS: CLOPIDOGREL BISULFATE 75 MG TABLET PO (09:50)
[2023-05-02] MEDS: PANTOPRAZOLE 40 MG TABLET PO (09:50)
--- NOTE | 2023-05-02 10:56 | PM.DS ---
DS: Admitting Diagnosis Discharge Date 05/02/2023 Admitting Diagnosis NSTEMI, chest pain, hypertension DS: Discharge Diagnosis Discharge Diagnosis (1) Non-ST elevation (NSTEMI) myocardial infarction: Code(s): I21.4 - Non-ST elevation (NSTEMI) myocardial infarction Status: Acute (2) Hypertension: Code(s): I10 - Essential (primary) hypertension Status: Acute (3) Tobacco abuse: Code(s): Z72.0 - Tobacco use Status: Acute (4) Hypercholesteremia: Code(s): E78.00 - Pure hypercholesterolemia, unspecified Status: Acute DS: Summary Hospital Course Reason for hospitalization: NSTEMI Hospital Course: 04/30:? This is a 62-year-old male patient who was being admitted to the hospital for elevated troponin abnormal EKG suggestive of [place]. Patient had chest pain starting 2 days ago that persisted until last night greater than 36 hours that was substernal constant pressure without radiation.? Patient states that he felt like he needed to belch but was really unable to.? Since the onset chest pressure patient has felt very weak and fatigued stated that he felt too weak to get up out of bed yesterday to drive himself to get checked out.? Patient does have a history of smoking 1 pack per day for multiple years, hyperlipidemia, hypertension and obesity.? Patient reports that he was pain free today but he went to urgent care at the insistence of his daughter and at urgent care he had an EKG that appeared to be a STEMI.? EMS was called and brought patient to the emergency department.? Interventional Cardiology Dr. Woodall reviewed EKG and noted some elevations without reciprocal changes and patient was pain free so he did not go directly to the refuse laborer.? Troponin was found to be elevated over 6.? Patient will be started on heparin drip and admitted to IMU.? Currently he is ordered in the emergency department as there are no available IMU beds.? We will repeat troponin and EKG at 3 and 6 hours.? Patient denies any ongoing symptoms except feeling weak at this time. 05/01:? Patient underwent cardiac cath with findings of ostial/proximal LAD stenosis requiring high risk PCI for optimal treatment.? Cardiology will keep patient overnight and plan discharge tomorrow on aspirin and Plavix with follow up outpatient for PCI with intervention at a facility with Cardiac Surgery backup present. ? Patient complains of right knee pain in the joint, no swelling redness or palpable fluid in the joint space.? Patient requesting dose of pain medication due to the knee being held straight for 4 hours? Will give 1 time dose of IV morphine. 05/02: No events overnight. Patient continues to feel well. Discussed follow-up with cardiology at [facility] after discussing case with Dr. Mccarty. Dr. Mccarty will perform patient's high risk PCI, patient just needs to call office on Thursday to arrange appointment. Prescriptions written for aspirin, Plavix, high-dose atorvastatin, metoprolol. Discussed smoking cessation with patient. Discussed the importance of rapid follow-up and patient states he is ready to have the next catheterization completed as soon as possible. Time spent discussing smoking cessation with patient: 3 to 10 minutes Status at Discharge Cognitive/behavioral status at discharge: awake alert oriented and very pleasant Functional status at discharge: independent ambulation Overall status at discharge: patient is progressing back to baseline Time Spent with Patient Time attestation: Total time spent providing and/or coordinating discharge services: 35 minutes Time spent: Greater than 30 minutes Specific discharge activities: smoking cessation information, follow-up with Cardiology explained, discussed with family regarding short-term disability paperwork Exam Narrative: GENERAL: Well-appearing, overweight, well-nourished, and in no acute distress. HEAD: Normocephalic, atraumatic. EYES: PERRLA and EOMI. ENT: Nares clear, no
== END 2023-05-02 12:22 | disposition home or self-care (01) | DRG 282 ==
LOC: ANHED 14:11 → ANHIMU 16:30
PROVIDERS: Emergency Medicine; Internal Medicine; Specialist; Admitting Provider Internal Medicine; Emergency Provider Nurse Practitioner; PCP Family Medicine; Visit Provider Nurse Practitioner
PROC: 4A023N7 Measurement of Cardiac Sampling and Pressure, Left Heart, Percutaneous Approach (ICD-10-PCS; CPT 93452; principal; 2023-05-01 09:30)
DX: I21.4 Non-ST elevation (NSTEMI) myocardial infarction (principal); E78.00 Pure hypercholesterolemia, unspecified; F17.210 Nicotine dependence, cigarettes, uncomplicated; E66.9 Obesity, unspecified; I10 Essential (primary) hypertension; K21.9 Gastro-esophageal reflux disease without esophagitis; M25.561 Pain in right knee; M19.90 Unspecified osteoarthritis, unspecified site; Z86.73 Personal history of transient ischemic attack (TIA), and cerebral infarction without residual deficits; Z20.822 Contact with and (suspected) exposure to COVID-19; Z68.32 Body mass index [BMI] 32.0-32.9, adult
CPT/HCPCS: 36415; 71045; 80053; 80061; 83036; 83690; 83735; 84443; 84484; 85025; 85610; 85730; 87637; 93005; 93458; 99215; 99291; A9270; C1887; C1894; C8929; G0463; J1644; J1885; J2250; J2270; J3010; J7030; J7040; Q9957

== ENCOUNTER 2023-08-03 12:25 | Outpatient (CLI) | payer BC, SELFPAY ==
--- NOTE | ~2023-08-03 | XR_ITS ---
Left Shoulder Technique: AP and scapular Y views were obtained. Clinical History: Pain Findings: No fracture or dislocation is seen. Osseous alignment is anatomic. There is mild AC joint d egenerative change. Glenohumeral joint intact. Soft tissues are unremarkable. Impression: Mild AC joint degenerative change. Reviewed, dictated and finalized at location . Impression: Mild AC joint degenerative change.
== END 2023-08-03 12:26 ==
LOC: MICIMG 12:27
PROVIDERS: PCP Family Medicine; Visit Provider Physician Assistant
DX: M19.012 Primary osteoarthritis, left shoulder (principal)
CPT/HCPCS: 73030

== ENCOUNTER 2024-05-23 15:33 | Outpatient (CLI) | payer BC, SELFPAY ==
[2024-05-23 16:38] LABS: Influenza A QL RT-PCR Negative (Negative); Influenza B QL RT-PCR Negative (Negative); RSV RNA, RT-PCR Negative (Negative); SARS-CoV-2 RNA PCR Negative (Negative)
== END 2024-05-23 15:34 | disposition home or self-care (01) ==
LOC: ANHLAB 15:34
PROVIDERS: PCP Family Medicine; Visit Provider Family Medicine
DX: J06.9 Acute upper respiratory infection, unspecified (principal); Z20.822 Contact with and (suspected) exposure to COVID-19
CPT/HCPCS: 87637